=== PATIENT | male | born 1955 | race Caucasian/White ===

== ENCOUNTER 2017-07-18 09:31 | Day surgery (SDC) | payer OTHER ==
[~2017-07-18] VITALS: Ht 165.1 cm; Wt 77.2 kg
[2017-07-18 09:56] VITALS: Ht 165.1 cm; Wt 77.2 kg
[2017-07-18] MEDS ORDERED: SIMV20TA2 PO (10:01)
[2017-07-18] MEDS ORDERED: FENTAnyl 50 MCG/ML VIAL ONE (10:50)
[2017-07-18] MEDS ORDERED: MIDAZOLAM 1 MG/ML 2 ML INJ ONE ×2 (10:50)
--- NOTE | 2017-07-18 10:51 | OPPN ---
Date/Time of Note Date/Time of Note DATE: 07/18/17 TIME: 10:47 Proc Note GI Procedure Date 07/18/17 Indication: screening/surveillance Pre-procedure Diagnosis screening colonoscopy Post-procedure Diagnosis polyp mid tr colon diverticulosis hemorrhoids Procedure Performed: Colonoscopy Surgeon see signature line Archeology Professor none Anesthesia Type: moderate sedation Tourniquet Time none EBL none Transfusion required none Biopsy 1: polyp midv tr colon Grafts/Implants none Tubes/Drains none Complication(s) none Disposition: other, home Procedure Description colonoscopy performed it revealed polyp in midc tr colon see dictation VIKTORIA BLAS MD Jul 18, 2017 10:51
--- NOTE | 2017-07-19 05:16 | GILP ---
DATE OF PROCEDURE: 07/18/2017 PROCEDURE: Colonoscopy. PREOPERATIVE DIAGNOSIS: Screening rule out colon polyps. POSTOPERATIVE DIAGNOSES: 1. A 4 mm polyp noted in a fold in the mid transverse colon. This was removed with a cold biopsy f orceps. 2. Diverticulosis. 3. Minimal external hemorrhoids. DESCRIPTION OF PROCEDURE: After informed written consent was obtained, the patient was asked to lie on the left lateral side, 3 mg Versed and 75 mcg of fentanyl was given as intravenous anesthesia. When the patient became somnolent, the Olympus video colonoscope was introduced into the rectum and advanced all the way to the cecum. A 4 mm flat polyp was noted in a fold in the mid transverse colo n. This was removed with help of a cold biopsy forceps. Rest of the colon up to the cecum appeared normal. On the way out, no additional abnormalities detected. Occasional diverticula was noted to be scattered along the colon. Minimal internal and minimal external hemorrhoids were noted. Scope at this time was withdrawn and the procedure was terminated. PLAN: Recommend a high fiber diet and wait for the pathology report. Next colonoscopy depends upon the pathology. Dictated By: VIKTORIA BLAS MD NC/NTS Conf#: [id number] DID#: [id number] CC: Katja Lugo MD;*End*
== END 2017-07-18 11:24 | disposition home or self-care (01) ==
LOC: EDSEX 09:31 → GIL 09:31
PROVIDERS: ATTEND Internal Medicine Gastroenterology
DX: Z12.11 Encounter for screening for malignant neoplasm of colon (principal); D12.3 Benign neoplasm of transverse colon; K57.90 Diverticulosis of intestine, part unspecified, without perforation or abscess without bleeding; K64.4 Residual hemorrhoidal skin tags
CPT/HCPCS: 45380; 88305; J2250; J3010